=== PATIENT | female | born 1955 | race Caucasian/White ===

== ENCOUNTER → 2022-02-28 10:47 | Outpatient (CLI) | payer MEDICARE, SELFPAY ==
[2022-02-28 12:23] LABS: Add Manual Diff / Slide Review NO; Basophils Absolute Auto 0 /uL (0-100); Basophils Percent Auto 0.6 % (0-2); Eosinophils Absolute Auto 100 /uL (0-450); Eosinophils Percent Auto 2.5 % (2-4); Hematocrit 43.7 % (36-46); Lymphocytes Absolute Auto 2100 /uL (1100-4500); Lymphocytes Percent Auto 42.4 % (25-40); Mean Corpuscular HGB Conc 34.2 % (30-36); Mean Corpuscular Hemoglobin 28.9 PG (26-34); Mean Corpuscular Volume 84.5 fL (80-100); Monocytes Absolute Auto 400 /uL (0-900); Monocytes Percent Auto 8.5 % (3-14); Neutrophils Absolute Auto 2200 /uL (1500-7000); Platelet Count 192 X10^3/uL (150-400); Red Blood Cell Count 5.17 X10^6/uL (4.0-5.2); Red Cell Distribution Width 14.3 % (11.6-14.8); White Blood Cell Count 4.8 X10^3/uL (4.5-11.0)
[2022-02-28 12:52] LABS: Free T4, Direct Thyroxine 0.34 ng/dL (0.78-2.19)
[2022-02-28 13:07] LABS: Thyroid Stimulating Hormone 3.78 uIU/mL (0.47-4.68)
[2022-02-28 13:10] LABS: Ferritin 69 ng/mL (11-264)
== END ==
PROVIDERS: PCP Nurse Practitioner Family; Referring Provider Nurse Practitioner Family; Visit Provider Nurse Practitioner Family
DX: R79.89 Other specified abnormal findings of blood chemistry (principal); E03.9 Hypothyroidism, unspecified
CPT/HCPCS: 82728; 84439; 84443; 85025

== ENCOUNTER → 2023-04-07 11:34 | Outpatient (CLI) | payer MEDICARE, SELFPAY ==
--- NOTE | 2023-04-07 | DI.US.S_ITS ---
PROCEDURE: US ABD AORTA ANEURYSM SCREEN INDICATIONS: HEART DISEASE TECHNIQUE: Real time scanning was performed of the aorta and iliac arteries, with image documentation. COMPARISON: None. FINDINGS: Aorta: Proximal aortic diameter measures 2.3 cm. Mid-aorta measures 1.7 cm. Distal aortic diameter is 1.5 cm. Iliac arteries: Right common iliac artery measures 0.8 cm. Left common iliac artery measures 0.9 cm. IMPRESSION: No ectasia or aneurysmal dilatation of the abdominal aorta or the iliac arteries. Dictated by: Jenniffer Carrillo M.D. on 04/07/2023 at 13:36 Approved by: Jenniffer Carrillo M.D. on 04/07/2023 at 13:36
--- NOTE | 2023-04-07 | DI.RAD.S_ITS ---
Bone Density Report Name: DEJON DUGGAN Age: 67 Sex: Female Ethnicity: White Date of : 1955 Indication: postmenopausal; screening for osteoporosis; Referring Provider: OJ MONTERO Study: Bone densitometry was performed. Exam Date: April 07, 2023 Accession number: [id number] Bone Density: Region BMD T-score Z-score Classification AP Spine(L1, L2, L4) 0.721 -2.8 -0.9 Osteoporosis Femoral Neck (Left) 0.501 -3.1 -1.4 Osteoporosis Total Hip (Left) 0.669 -2.2 -0.8 Osteopenia Femoral Neck (Right) 0.524 -2.9 -1.2 Osteoporosis Total Hip (Right) 0.693 -2.0 -0.6 Osteopenia Total Hip Mean 0.681 -2.1 -0.7 Osteopenia World Health Organization criteria for BMD impression classify patients as: Normal (T-score at or above -1.0), Osteopenia (T-score between -1.0 and -2.5), or Osteoporosis (T-score at or below -2.5). 10-year Fracture Risk: FRAX not reported because: Some T-score for Spine Total or Hip Total or Femoral Neck at or below -2.5 Impression: The patient has osteoporosis, based on the Left Femoral Neck T-score. Discussion: INCREASED RISK OF FRACTURE. BONE DENSITY IS UNDESIRABLY LOW AT ONE OR MORE SKELETAL SITES, CONSISTENT WITH POSTMENOPAUSAL OSTEOPOROSIS. This patient's lowest T-score meets the World Health Organization's (WHO) criteria for osteoporosis at one or more sites (T-score -2.5 or below). In untreated patients, the risk of osteoporotic fracture increases approximately two-fold for each 1.0 SD decrease in T-score. Low bone density is not the only risk factor for fracture; also consider factors such as patient's age, frailty or poor health, risk of falling, risk of injury, previous osteoporotic fracture, family history of osteoporosis, cigarette smoking, low body weight, etc. Not everyone with low bone mineral density has osteoporosis; osteomalacia and other metabolic bone disorders should also be considered. Patients who have osteoporosis should be evaluated for specific diseases and conditions (secondary causes) that may cause or contribute to bone loss. The [place] [employer] (AACE) and National Osteoporosis Foundation (NOF) recommend pharmacologic intervention for all postmenopausal women whose T-score is in this range. The patient should follow a healthful lifestyle (good nutrition with adequate calcium and vitamin D, and appropriate weight-bearing exercise). Follow-Up: Consider a repeat BMD and Vertebral Fracture Assessment (VFA) exam in 2 years or sooner if medically necessary, to reassess this patient's status. Reported by: GWENDOLYN MARTINES M.D. on 04/07/2023 12:06:00 PM.
--- NOTE | 2023-04-07 | DI.US.S_ITS ---
PROCEDURE: US THYROID INDICATIONS: HYPOTHYROIDISM TECHNIQUE: Real-time scanning was performed of the thyroid gland, with image documentation. COMPARISON: None. FINDINGS: Right: Thyroid lobe measures 2.2 x 1.1 x 1.0 cm, and is heterogeneous in echotexture. Left: Thyroid lobe measures 2.3 x 0.3 x 0.5 cm, and is heterogeneous in echotexture. Isthmus: 2 mm thick. Nodule number: 1 Location: Right mid thyroid lobe Size: 0.5 x 0.5 x 0.5 cm. Composition: Solid Echogenicity: Hyperechoic Shape: wider than tall. Margins: Smooth Echogenic foci: None Total points: 4 ACR TI-RADS category: Moderately suspicious IMPRESSION: Single 0.5 cm TI-RADS 4 (moderately suspicious) right mid thyroid lobe nodule. Recommend imaging follow-up as detailed below ACR TI-RADS definitions and recommendations: TI-RADS 1 (benign): 0 points. FNA not needed. TI-RADS 2 (not suspicious): 2 points. FNA not needed. TI-RADS 3 (mildly suspicious): 3 points. * FNA if 2.5 cm or larger, follow up if 1.5 cm or larger (at 1, 3, and 5 years). TI-RADS 4 (moderately suspicious): 4-6 points. * FNA if 1.5 cm or larger, follow up if 1 cm or larger (at 1, 2, 3, and 5 years). TI-RADS 5 (highly suspicious): 7 points or more. * FNA if 1 cm or larger, follow up if 0.5 cm or larger (every year for 5 years). Dictated by: Jacob Marinelli M.D. on 04/07/2023 at 16:53 Approved by: Jacob Marinelli M.D. on 04/07/2023 at 16:57
== END ==
PROVIDERS: PCP Family Medicine; Referring Provider Family Medicine; Visit Provider Family Medicine
DX: M81.0 Age-related osteoporosis without current pathological fracture (principal); E03.9 Hypothyroidism, unspecified; E04.1 Nontoxic single thyroid nodule; Z82.49 Family history of ischemic heart disease and other diseases of the circulatory system; Z13.6 Encounter for screening for cardiovascular disorders
CPT/HCPCS: 76536; 76706; 77080

== ENCOUNTER → 2024-10-09 13:18 | Outpatient (CLI) | payer MEDICARE, SELFPAY ==
--- NOTE | 2024-10-09 13:21 | DI.US.S_ITS ---
PROCEDURE: US THYROID INDICATIONS: Thyroid nodule,GLOBUS SENSATION,DYSPHAGIA TECHNIQUE: Real-time scanning was performed of the thyroid gland, with image documentation. COMPARISON: US, US THYROID, 04/07/2023, 12:06. FINDINGS: Thyroid: Right lobe measures 2.3 x 0.6 x 0.8 cm. Left lobe measures 1.2 x 0.4 x 0.3 cm. Isthmus is 1.3 cm thick. Echotexture is homogeneous. No identified areas meet criteria for follow-up. Previous 5 mm solid-appearing structure in the right mid lobe is not be. IMPRESSION: No areas meeting criteria for interval follow-up. ACR TI-RADS definitions and recommendations: TI-RADS 1 (benign): 0 points. FNA not needed. TI-RADS 2 (not suspicious): 2 points. FNA not needed. TI-RADS 3: 3 points. * FNA if 2.5 cm or larger, follow up if 1.5 cm or larger (at 1, 3, and 5 years). TI-RADS 4: 4-6 points. * FNA if 1.5 cm or larger, follow up if 1 cm or larger (at 1, 2, 3, and 5 years). TI-RADS 5: 7 points or more. * FNA if 1 cm or larger, follow up if 0.5 cm or larger (every year for 5 years). Dictated by: Nataliya Villarreal M.D. on 10/09/2024 at 16:13 Approved by: Nataliya Villarreal M.D. on 10/09/2024 at 16:15
== END ==
PROVIDERS: PCP Family Medicine; Referring Provider Physician Assistant; Visit Provider Physician Assistant
DX: R09.A2 Foreign body sensation, throat (principal); R13.10 Dysphagia, unspecified; E04.1 Nontoxic single thyroid nodule
CPT/HCPCS: 76536